=== PATIENT | male | born 1950 | race American Indian/Alaskan Native ===

== ENCOUNTER 2016-10-05 22:08 | Emergency (ER) | payer OTHER ==
[2016-10-05 22:23] VITALS: BP 120/61
--- NOTE | 2016-10-06 02:31 | Emergency Department Report ---
HPI - General Chief Complaint: Anxiety Time Seen by Provider: 10/06/16 02:02 - HPI HPI: 65-year-old male, accompanied by , presents today post one episode of chills and shaking that occurred at 9 PM yesterday. states that she called Dr. Antoine who asked her to bring the patient to the ER. Patient was given Tylenol Extra Strength 2 with relief. also states the patient had hives with pruritus yesterday and he has been taking Benadryl with symptomatic relief. Denies any pain, pruritus, chills, shaking at this time. Denies any loss of consciousness or head injury. Denies fever, chills, nausea, vomiting, headache, visual changes, confusion, chest pain, shortness of breath, abdominal pain. ED Past Medical Hx - Past Medical History Previous Medical History?: Yes Hx Hypertension: Yes Hx Heart Attack/AMI: Yes (May 2016) Hx Congestive Heart Failure: No Hx Diabetes: Yes ([id number]) Hx Deep Vein Thrombosis: Yes ()2015) Hx GERD: No Hx Renal Disease: Yes (renal cyst s/p rt partial nephrectomy) Hx Seizures: No Hx Asthma: No Hx COPD: No Hx Tuberculosis: No Hx HIV: No - Surgical History Past Surgical History?: Yes Hx Coronary Stent: Yes (2015) Hx Pacemaker: No - Social History Smoking Status: Former Smoker Substance Use Type: Non Opiate Pain, Prescribed - Medications Home Medications: Home Medications Medication Instructions Recorded Confirmed Last Taken Type Latanoprost 1 drop OS DAILY 05/13/15 06/13/16 10/05/15 09:00 History Acetaminophen [Acetaminophen TAB] 650 mg PO Q4H PRN #1 tablet 06/23/16 Unknown Rx Aspirin [Aspirin BABY CHEW TAB] 81 mg PO QDAY #30 tab.chew 06/23/16 Unknown Rx AtorvaSTATin [Lipitor] 40 mg PO QHS #30 tablet 06/23/16 Unknown Rx Clopidogrel [Plavix] 75 mg PO QDAY #30 tablet 06/23/16 Unknown Rx Docusate Sodium [Colace CAP] 100 mg PO BID capsule 06/23/16 Unknown Rx Gabapentin [Neurontin] 300 mg PO BID #60 capsule 06/23/16 Unknown Rx Hydrochlorothiazide [HCTZ] 25 mg PO QDAY #30 tablet 06/23/16 Unknown Rx Metoprolol [Lopressor TAB] 100 mg PO BID #60 tablet 06/23/16 Unknown Rx Nicotine [Habitrol] 14 mg TD QDAY #30 patch 06/23/16 Unknown Rx QUEtiapine [SEROquel] 50 mg PO QHS #30 tablet 06/23/16 Unknown Rx amLODIPine [Norvasc] 10 mg PO QDAY #30 tablet 06/23/16 Unknown Rx hydrALAZINE [Apresoline TAB] 25 mg PO TID #90 tablet 06/23/16 Unknown Rx ED Review of Systems ROS: Stated complaint: CHILLS, SHAKING Other details as noted in HPI Constitutional: denies: chills, fever, malaise Eyes: denies: eye pain, vision change ENT: denies: ear pain, throat pain, congestion Respiratory: denies: cough, shortness of breath, wheezing Cardiovascular: denies: chest pain, palpitations Endocrine: no symptoms reported Gastrointestinal: denies: abdominal pain, nausea, vomiting Neurological: denies: headache, weakness, numbness, paresthesias Physical Exam - Physical Exam Vital Signs: Vital Signs 10/05/16 22:15 Temperature 98.9 F Pulse Rate 92 H Respiratory 18 Rate Blood Pressure 120/61 Blood Pressure 120/61 [Right] O2 Sat by Pulse 95 Oximetry Physical Exam: GENERAL: The patient is well-developed and well-nourished. Patient is in NAD. SKIN: No hives, rash or discoloration noted. HEAD: Normocephalic. Atraumatic. CHEST/LUNGS: Clear to auscultation throughout. HEART/CARDIOVASCULAR: Regular rate and rhythm. No murmurs, rubs or gallops. ABDOMEN: Abdomen is soft, nontender. Bowel sounds normoactive. No guarding or rebound tenderness. EXTREMITIES: Peripheral pulses intact. Capillary refill less than 2 seconds. NEURO: Alert and oriented 3, fluid speech, EOMs intact, symmetrical strength and sensation, GCS equals 15 ED Course Vital Signs 10/05/16 22:15 Temperature 98.9 F Pulse Rate 92 H Respiratory 18 Rate Blood Pressure 120/61 Blood Pressure 120/61 [Right] O2 Sat by Pulse 95 Oximetry - Reevaluation(s) Reevaluation #1: 10/06/16 02:10 Explained to patient that since he is asymptomatic at this time and his physical exam is unremarkable, there is no need for a full workup. Patient needs to follow up with his primary care provider. Patient expressed understanding. Reevaluation #2: 10/06/16 02:15 Patient eloped without discharge paperwork. Critical care attestation.: If time is entered above; I have spent that time in minutes in the direct care of this critically ill patient, excluding procedure time. ED Disposition Clinical Impression: Chills without fever, Normal exam Disposition: DISCHARGED TO HOME OR SELFCARE Is pt being admited?: No Condition: Stable Referrals: KEVEN ANTOINE MD [Primary Care Provider] - 3-5 Days
== END 2016-10-06 02:15 | disposition left against medical advice (07) ==
LOC: ED 22:08
DX: R68.83 Chills (without fever) (principal); I10 Essential (primary) hypertension; I50.9 Heart failure, unspecified; E11.9 Type 2 diabetes mellitus without complications; Z87.891 Personal history of nicotine dependence; Z95.1 Presence of aortocoronary bypass graft; Z86.718 Personal history of other venous thrombosis and embolism; Z87.438 Personal history of other diseases of male genital organs
CPT/HCPCS: 99282

== ENCOUNTER 2017-03-07 13:50 | Outpatient (CLI) | payer OTHER | END 2017-03-07 13:51 | disposition home or self-care (01) | LOC: LAB 13:50 | PROVIDERS: ATTEND Internal Medicine | DX: E87.5 Hyperkalemia (principal); I11.0 Hypertensive heart disease with heart failure; I50.9 Heart failure, unspecified; E78.00 Pure hypercholesterolemia, unspecified; E11.9 Type 2 diabetes mellitus without complications; Z87.891 Personal history of nicotine dependence | CPT/HCPCS: 36415; 84132 ==